=== PATIENT | male | born 1970 | race Caucasian/White ===

== ENCOUNTER 2018-08-05 19:39 | Emergency (ER) | payer OTHER ==
[~2018-08-05] VITALS: Ht 160 cm; Wt 67.7 kg
[2018-08-05 20:05] VITALS: BP 139/86
[2018-08-05] MEDS ORDERED: HYDROcodone/APAP 5/325 TABLET PO ONE (20:30)
[2018-08-05] MEDS ORDERED: HYDROcodone/APAP 5/325 TABLET ONE (20:30)
--- NOTE | 2018-08-05 20:34 | NUR ---
MEDICATED PER EMAR FOR BACK PAIN. ESTIMATOR PRINTING COMFORTABLE DISCHARGING PATIENT IMMEDIATELY AFTER MEDICATION PATIENT NOT NAIVE TO NARCOTICS (HX OF DAILY NARCOTIC USE FOR CHRNIC BACK PAIN) PATIENT DISCHARGED IN THE COMPANY OF HIS . THEY ARE WALKING HOME
== END 2018-08-05 20:37 | disposition home or self-care (01) ==
LOC: ED 20:31
DX: G89.29 Other chronic pain (principal); M54.5 Low back pain
CPT/HCPCS: 99283